=== PATIENT | male | born 1950 | race Two or more races ===

== ENCOUNTER 2025-02-12 21:01 | Observation (INO) | payer OTHER ==
[2025-02-12 22:16] LABS: ABSOLUTE IMMATURE GRANULOCYTES 0.04 x10^3/uL (0.0-0.031); BASOPHILS # 0.03 x10^3/uL (0.01-0.08); EOSINOPHIL % 0.9 % (0.8-7.0); EOSINOPHILS # 0.08 x10^3/uL (0.04-0.54); MCHC 32.5 g/dl (32.3-36.5); MEAN CELL VOLUME 90.0 fl (79.0-92.2); MEAN PLT VOLUME 9.4 fl (9.4-12.4); MONOCYTE # 0.73 x10^3/uL (0.30-0.82); MONOCYTE % 8.0 % (5.3-12.2); RDW 14.1 % (12.2-16.6)
[2025-02-12 22:23] LABS: INR 1.09 (0.83-1.09); PROTHROMBIN TIME (PATIENT) 12.0 SEC (9.7-13.0)
[2025-02-12 22:26] LABS: ACTIVATED PTT 28.4 SECONDS (25.2-36.5)
[2025-02-12 22:41] LABS: GLUCOSE,RANDOM 459 mg/dL (74-106); TOT PROT 6.5 g/dl (6.4-8.2)
[2025-02-12 22:42] LABS: CO2 23 mmol/L (21-32)
[2025-02-12 22:43] LABS: ALK PHOS 81 U/L (40-150)
[2025-02-12 22:46] LABS: SGOT/AST 23 U/L (5-34); SGPT/ALT 23 U/L (0-55)
[2025-02-12 22:47] LABS: CREATININE 0.65 mg/dL (0.55-1.3)
[2025-02-12 23:09] LABS: HCV DIAGNOSTIC IN-HOUSE W/RFLX NON-REACTIVE (NONREACTIVE); HIV INTERPRETATION NEGATIVE (NEGATIVE)
[2025-02-13] MEDS: SODIUM CHLORIDE 1,000 ML IV STA (00:49)
[2025-02-13] MEDS: INSULIN REGULAR HUMAN 100 UNITS/ML *VIAL SQ ONE (00:50)
[2025-02-13] MEDS: MAGNESIUM SULF 50% (8.12 MEQ/2 ML-1 GM VIAL) IVPB ONE (00:50)
[2025-02-13] MEDS: INSULIN REGULAR HUMAN 100 UNITS/ML *VIAL IVPUSH ONE (00:50)
[2025-02-13] MEDS ORDERED: MAGNESIUM 1GM/D5W - 1 GM/100 ML IVPB IVPB ONE (00:52)
[2025-02-13] MEDS: LACTATED RINGERS SOLUTION 1000 ML INFUS.BAG IV ONE (03:34)
[2025-02-13] MEDS ORDERED: MECLIZINE HCL 25 MG TABLET (FP) ONE (09:51)
[2025-02-13] MEDS: MECLIZINE HCL 25 MG TABLET (FP) PO ONE (09:57)
[2025-02-13] MEDS: INSULIN GLARGINE (LANTUS) 100 UNITS/ML UNITS SQ SCH (12:36)
[2025-02-13] MEDS: INSULIN ASPART SLIDING SCALE (NOVOLOG) 1 VIAL SQ SCH (12:36)
[2025-02-13 14:16] VITALS: BMI 28.5
[2025-02-13] MEDS ORDERED: hydrOXYzine PAMOATE 25 MG CAPSULE (FP) PO ONE (21:05)
[2025-02-13] MEDS: MIRTAZAPINE 15 MG TABLET (FP) PO SCH (21:32)
[2025-02-13] MEDS: hydrOXYzine PAMOATE 50 MG CAPSULE (FP) PO SCH (21:33)
[2025-02-13] MEDS: FAMOTIDINE 20 MG TABLET PO SCH (21:33)
[2025-02-13] MEDS: HEPARIN NA (PORCINE) 5,000 UNITS/ML 1ML VIAL SQ SCH (21:41)
[2025-02-14 09:28] LABS: ABSOLUTE IMMATURE GRANULOCYTES 0.03 x10^3/uL (0.0-0.031); BASOPHILS # 0.04 x10^3/uL (0.01-0.08); EOSINOPHIL % 2.3 % (0.8-7.0); EOSINOPHILS # 0.18 x10^3/uL (0.04-0.54); MCHC 32.4 g/dl (32.3-36.5); MEAN CELL VOLUME 89.1 fl (79.0-92.2); MEAN PLT VOLUME 9.5 fl (9.4-12.4); MONOCYTE # 0.72 x10^3/uL (0.30-0.82); MONOCYTE % 9.4 % (5.3-12.2); RDW 13.9 % (12.2-16.6)
[2025-02-14 09:50] LABS: GLUCOSE,RANDOM 166.0 mg/dL (74-106)
[2025-02-14 09:52] LABS: CO2 22.0 mmol/L (21-32)
[2025-02-14 09:56] LABS: CREATININE 0.61 mg/dL (0.55-1.3)
[2025-02-14] MEDS: ATORVASTATIN CA 10 MG TABLET (FP) PO SCH (09:57)
[2025-02-14] MEDS: TAMSULOSIN HCL 0.4 MG CAP PO SCH (09:57)
[2025-02-14] MEDS: amLODIPine BESYLATE 5 MG TABLET (FP) PO SCH (09:57)
[2025-02-14] MEDS: DOCUSATE SODIUM 100 MG CAPSULE (FP) PO SCH (09:57)
[2025-02-14] MEDS: SERTRALINE HCL 50 MG TABLET (FP) PO SCH (09:58)
[2025-02-14] MEDS: INSULIN GLARGINE (LANTUS) 100 UNITS/ML UNITS SQ SCH (14:27)
[2025-02-14 22:03] LABS: URINE APPEARANCE CLEAR; URINE BILIRUBIN NEGATIVE (NEGATIVE); URINE COLOR YELLOW; URINE GLUCOSE (UA) 3+ (NEGATIVE); URINE KETONE TRACE (NEGATIVE); URINE LEUK ESTERASE NEGATIVE (NEGATIVE); URINE NITRITE NEGATIVE (NEGATIVE); URINE PROTEIN NEGATIVE (NEGATIVE); URINE UROBILINOGEN 1.0 mg/dL (0.2-1.0)
[2025-02-15] MEDS ORDERED: INSULIN GLARGINE (LANTUS) 100 UNITS/ML UNITS SQ SCH (10:00)
[2025-02-15] MEDS: INSULIN GLARGINE (LANTUS) 100 UNITS/ML UNITS SQ SCH (10:06)
[2025-02-15] MEDS: SERTRALINE HCL 50 MG TABLET (FP) PO SCH (10:06)
[2025-02-15] MEDS: INSULIN (NOVOLOG) ASPART 100 UNITS/ML 10ML VIAL SQ SCH (11:49)
[2025-02-16] MEDS: INSULIN GLARGINE (LANTUS) 100 UNITS/ML UNITS SQ SCH (06:08)
[2025-02-16] MEDS: INSULIN (NOVOLOG) ASPART 100 UNITS/ML 10ML VIAL SQ SCH ×2 (06:08→12:07)
[2025-02-16 09:29] LABS: ABSOLUTE IMMATURE GRANULOCYTES 0.05 x10^3/uL (0.0-0.031); BASOPHILS # 0.04 x10^3/uL (0.01-0.08); EOSINOPHIL % 0.7 % (0.8-7.0); EOSINOPHILS # 0.07 x10^3/uL (0.04-0.54); MCHC 32.4 g/dl (32.3-36.5); MEAN CELL VOLUME 89.8 fl (79.0-92.2); MEAN PLT VOLUME 9.7 fl (9.4-12.4); MONOCYTE # 1.20 x10^3/uL (0.30-0.82); MONOCYTE % 12.6 % (5.3-12.2); RDW 14.2 % (12.2-16.6)
[2025-02-16 10:24] LABS: GLUCOSE,RANDOM 126.0 mg/dL (74-106); TOT PROT 6.3 g/dl (6.4-8.2)
[2025-02-16 10:25] LABS: CO2 26.0 mmol/L (21-32)
[2025-02-16 10:27] LABS: ALK PHOS 64.0 U/L (40-150)
[2025-02-16 10:30] LABS: CREATININE 0.54 mg/dL (0.55-1.3); SGOT/AST 19.0 U/L (5-34); SGPT/ALT 17.0 U/L (0-55)
[2025-02-16] MEDS: MAGNESIUM SULFATE IN WATER 2 GM/50 ML IVPB IVPB ONE (16:32)
[2025-02-17] MEDS ORDERED: ACETAMINOPHEN 325 MG TABLET (FP) ONE (05:47)
[2025-02-17] MEDS: ACETAMINOPHEN 325 MG TABLET (FP) PO PRN (05:55)
[2025-02-17] MEDS: INSULIN (NOVOLOG) ASPART 100 UNITS/ML 10ML VIAL SQ SCH (09:09)
[2025-02-17] MEDS: ACETAMINOPHEN 1000 MG/100 ML BAG IVPB PRN (17:48)
[2025-02-17] MEDS: PIPERACILLIN/TAZOB 3.375 GM 3.375 GM in DEXTROSE 5%-WATER - 50 ML IVPB SCH (20:07)
[2025-02-17 20:09] LABS: ABSOLUTE IMMATURE GRANULOCYTES 0.04 x10^3/uL (0.0-0.031); BASOPHILS # 0.04 x10^3/uL (0.01-0.08); EOSINOPHIL % 0.9 % (0.8-7.0); EOSINOPHILS # 0.10 x10^3/uL (0.04-0.54); MCHC 32.7 g/dl (32.3-36.5); MEAN CELL VOLUME 90.2 fl (79.0-92.2); MEAN PLT VOLUME 10.6 fl (9.4-12.4); MONOCYTE # 1.35 x10^3/uL (0.30-0.82); MONOCYTE % 11.9 % (5.3-12.2); RDW 14.2 % (12.2-16.6)
[2025-02-17 20:26] LABS: GLUCOSE,RANDOM 248.0 mg/dL (74-106)
[2025-02-17 20:27] LABS: TOT PROT 6.2 g/dl (6.4-8.2)
[2025-02-17 20:29] LABS: ALK PHOS 75.0 U/L (40-150)
[2025-02-17 20:32] LABS: CREATININE 0.59 mg/dL (0.55-1.3); SGOT/AST 30.0 U/L (5-34); SGPT/ALT 22.0 U/L (0-55)
[2025-02-17 20:36] LABS: EPI CELLS 16 /uL (0-25.1); HYALINE CASTS 2 /uL (0-3.1); URINE APPEARANCE CLOUDY; URINE BACTERIA >9,000 /uL (0-1359); URINE BILIRUBIN NEGATIVE (NEGATIVE); URINE COLOR ORANGE; URINE GLUCOSE (UA) TRACE (NEGATIVE); URINE KETONE TRACE (NEGATIVE); URINE LEUK ESTERASE 2+ (NEGATIVE); URINE NITRITE POSITIVE (NEGATIVE); URINE PROTEIN 2+ (NEGATIVE); URINE RBC 2616 /uL (0-23.9); URINE UROBILINOGEN 2.0 mg/dL (0.2-1.0)
[2025-02-17 21:06] LABS: CO2 21.0 mmol/L (21-32)
[2025-02-18] MEDS: INSULIN GLARGINE (LANTUS) 100 UNITS/ML UNITS SQ SCH (06:03)
[2025-02-18 09:36] LABS: ABSOLUTE IMMATURE GRANULOCYTES 0.05 x10^3/uL (0.0-0.031); BASOPHILS # 0.04 x10^3/uL (0.01-0.08); EOSINOPHIL % 2.0 % (0.8-7.0); EOSINOPHILS # 0.22 x10^3/uL (0.04-0.54); MCHC 32.0 g/dl (32.3-36.5); MEAN CELL VOLUME 90.6 fl (79.0-92.2); MEAN PLT VOLUME 10.0 fl (9.4-12.4); MONOCYTE # 1.46 x10^3/uL (0.30-0.82); MONOCYTE % 13.6 % (5.3-12.2); RDW 14.1 % (12.2-16.6)
[2025-02-18 09:51] LABS: GLUCOSE,RANDOM 176.0 mg/dL (74-106); TOT PROT 6.4 g/dl (6.4-8.2)
[2025-02-18 09:52] LABS: CO2 26.0 mmol/L (21-32)
[2025-02-18 09:54] LABS: ALK PHOS 79.0 U/L (40-150)
[2025-02-18 09:57] LABS: CREATININE 0.56 mg/dL (0.55-1.3); SGOT/AST 25.0 U/L (5-34); SGPT/ALT 27.0 U/L (0-55)
[2025-02-18 10:02] VITALS: RESP 18
[2025-02-18] MEDS: VANCOMYCIN/WATER FOR INJ (PEG) 1,000 MG/200 ML BAG IVPB SCH (12:04)
[2025-02-18] MEDS: PIPERACILLIN/TAZOB 3.375 GM 3.375 GM in DEXTROSE 5%-WATER - 50 ML IVPB SCH (16:47)
[2025-02-18] MEDS: INSULIN (NOVOLOG) ASPART 100 UNITS/ML 10ML VIAL SQ SCH (18:11)
[2025-02-18] MEDS: COLLAGENASE CLOSTRIDIUM HIST. 30 GRAMS TUBE TP SCH (18:12)
[2025-02-18] MEDS: ACETAMINOPHEN 1000 MG/100 ML BAG IVPB PRN (18:40)
[2025-02-18] MEDS: AMPICILLIN NA/SULBACTAM NA 3 GM in SODIUM CHLORIDE 100 ML IVPB SCH (21:22)
[2025-02-18] MEDS ORDERED: VANCOMYCIN/WATER FOR INJ (PEG) 1,000 MG/200 ML BAG IVPB SCH (22:00)
[2025-02-19 06:01] VITALS: TEMP 98.1
[2025-02-19] MEDS: INSULIN GLARGINE (LANTUS) 100 UNITS/ML UNITS SQ SCH (06:01)
[2025-02-19] MEDS ORDERED: ACETAMINOPHEN 500 MG TABLET (FP) PO PRN (07:21)
[2025-02-19] MEDS ORDERED: INSULIN GLARGINE (LANTUS) 100 UNITS/ML UNITS SQ SCH (07:59)
[2025-02-19 10:16] VITALS: BP 123/67; PULSE 86
[2025-02-19 10:29] LABS: ABSOLUTE IMMATURE GRANULOCYTES 0.03 x10^3/uL (0.0-0.031); BASOPHILS # 0.03 x10^3/uL (0.01-0.08); EOSINOPHIL % 1.6 % (0.8-7.0); EOSINOPHILS # 0.17 x10^3/uL (0.04-0.54); MCHC 32.2 g/dl (32.3-36.5); MEAN CELL VOLUME 90.7 fl (79.0-92.2); MEAN PLT VOLUME 10.0 fl (9.4-12.4); MONOCYTE # 1.38 x10^3/uL (0.30-0.82); MONOCYTE % 12.8 % (5.3-12.2); RDW 14.2 % (12.2-16.6)
[2025-02-19 10:57] LABS: GLUCOSE,RANDOM 58.0 mg/dL (74-106); TOT PROT 6.3 g/dl (6.4-8.2)
[2025-02-19 10:58] LABS: CO2 22.0 mmol/L (21-32)
[2025-02-19 11:00] LABS: ALK PHOS 68.0 U/L (40-150)
[2025-02-19 11:02] LABS: SGOT/AST 22.0 U/L (5-34); SGPT/ALT 21.0 U/L (0-55)
[2025-02-19 11:03] LABS: CREATININE 0.62 mg/dL (0.55-1.3)
== END 2025-02-19 14:28 ==
LOC: JER 21:01 → JERBED 02-13 10:20 → J5S 02-13 12:24
PROVIDERS: ADMIT Internal Medicine
PROC: 3E033NZ Introduction of Analgesics, Hypnotics, Sedatives into Peripheral Vein, Percutaneous Approach (ICD-10-PCS; principal; 2025-02-13)
PROC: 3E03329 Introduction of Other Anti-infective into Peripheral Vein, Percutaneous Approach (ICD-10-PCS; 2025-02-13)
PROC: 3E023GC Introduction of Other Therapeutic Substance into Muscle, Percutaneous Approach (ICD-10-PCS; 2025-02-13)
PROC: 3E013VG Introduction of Insulin into Subcutaneous Tissue, Percutaneous Approach (ICD-10-PCS; 2025-02-13)
PROC: 3E0337Z Introduction of Electrolytic and Water Balance Substance into Peripheral Vein, Percutaneous Approach (ICD-10-PCS; 2025-02-13)
PROC: 3E033GC Introduction of Other Therapeutic Substance into Peripheral Vein, Percutaneous Approach (ICD-10-PCS; 2025-02-13)
DX: E11.65 Type 2 diabetes mellitus with hyperglycemia (principal); I80.8 Phlebitis and thrombophlebitis of other sites; E11.10 Type 2 diabetes mellitus with ketoacidosis without coma; L03.114 Cellulitis of left upper limb; R53.1 Weakness; I10 Essential (primary) hypertension; E78.5 Hyperlipidemia, unspecified; N40.0 Benign prostatic hyperplasia without lower urinary tract symptoms; Z79.85 Long-term (current) use of injectable non-insulin antidiabetic drugs; Z90.49 Acquired absence of other specified parts of digestive tract; Z87.891 Personal history of nicotine dependence
CPT/HCPCS: 36415; 70450-TC; 70551-TC; 71045-TC-FY; 71046-TC-FY; 80048; 80053; 81003; 82607; 82746; 82962; 83036; 83735; 84100; 84439; 84443; 84484; 85025; 85610; 85730; 86780; 86803; 86850; 86900; 86901; 87040; 87086; 87389; 87637-QW; 93005; 93010; 93971-TC-LT; 96361; 96365; 96366; 96367; 96372; 96375; 96376; 97116-GP; 99285-25; G0378